=== PATIENT | female | born 1975 | race Caucasian/White ===

== ENCOUNTER → 2023-08-22 10:05 | Outpatient (CLI) | payer OTHER, MEDICAID, SELFPAY ==
[2023-08-22 11:42] LABS: Influenza A - CEPHEID Flu A POSITIVE (NEGATIVE); Influenza B - CEPHEID Flu B NEGATIVE (NEGATIVE); Respiratory Syncytial Virus Negative (Negative)
[2023-08-22 11:49] LABS: COVID-19 CEPHEID 4-PLEX PCR Negative (Negative)
== END ==
PROVIDERS: Visit Provider Nurse Practitioner Family
DX: R05.1 Acute cough (principal); Z20.828 Contact with and (suspected) exposure to other viral communicable diseases; R53.81 Other malaise; R53.83 Other fatigue
CPT/HCPCS: 0241U

== ENCOUNTER → 2023-09-11 10:21 | Outpatient (CLI) | payer OTHER, MEDICAID, SELFPAY ==
--- NOTE | 2023-09-11 10:23 | DI.RAD.S_ITS ---
PROCEDURE: XR FOOT RT MIN 3V INDICATIONS: jammed pinky toe TECHNIQUE: 3 views of the foot were acquired. COMPARISON: None. FINDINGS: Bones: There is mild lateral subluxation of the 5th toe at the proximal interphalangeal joint. There is widening of the joint space in the proximal 5th interphalangeal joint medially. Question a small chip or avulsion fracture at the base of the 5th middle phalanx. No suspicious bony lesions. Calcaneal and plantar spurring. Mild osteoarthritic changes in ankle and foot. Soft tissues: No tibiotalar joint effusion. Achilles tendon appears normal. IMPRESSION: 1. Mild lateral subluxation of the 5th toe at the proximal interphalangeal joint. Question a small chip or avulsion fracture at the base of the 5th middle phalanx. Dictated by: Amadeo Ro M.D. on 09/11/2023 at 13:44 Approved by: Amadeo Ro M.D. on 09/11/2023 at 13:50
== END ==
PROVIDERS: PCP Family Medicine; Referring Provider Family Medicine; Visit Provider Family Medicine
DX: S93.134A Subluxation of interphalangeal joint of right lesser toe(s), initial encounter (principal); M79.676 Pain in unspecified toe(s); X58.XXXA Exposure to other specified factors, initial encounter
CPT/HCPCS: 73630